=== PATIENT | female | born 1980 | race Caucasian/White ===

== ENCOUNTER → 2019-11-11 | Outpatient (CLI) | payer OTHER ==
--- NOTE | 2019-11-11 15:39 | US ---
EXAMINATION TYPE: US thyroid st tissue head/neck DATE OF EXAM: 11/11/2019 COMPARISON: NONE CLINICAL HISTORY: E04.1 Thyroid nodule. Patient states doctor felt a nodule. Not on thyroid meds. GLAND SIZE: Right Lobe: 5.1 x 1.7 x 1.7 cm Overall Parenchyma: Slightly heterogenous Left Lobe: 5.0 x 1.6 x 1.3 cm Overall Parenchyma: Slightly heterogenous Isthmus Thickness: 0.3 cm NODULES RIGHT: # of nodules measured on right: 1 1. 1.1 X 0.9 x 0.6 cm mixed nodule at the lower pole with well-defined margins; . This nodule is w ider than tall and shows intranodular vascularity. Prior size: No prior 2. 0.4 X 0.2 x 0.3 cm cystic nodule at the upper pole with well-defined margins. This nodule is wid er than tall and shows no intranodular vascularity. Prior size: No prior LEFT: # of nodules measured on left: 3 1. 1.1 X 0.9 x 1.0 cm isoechoic nodule at the lower pole with well-defined margins. This nodule is taller than wide and shows intranodular vascularity. Prior size: No prior 2. 1.0 X 0.9 x 1.0 cm isoechoic nodule at the lower pole with well-defined margins. This nodule is taller than wide and shows intranodular vascularity. Prior size: No prior 3. 0.8 X 0.5 x 0.6 cm mixed nodule at the lower/mid pole with well-defined margins. This nodule is taller than wide and shows no intranodular vascularity. Prior size: No prior ISTHMUS: # of nodules measured in the isthmus: 0 Bilateral neck scanned, no evidence of lymphadenopathy. IMPRESSION: 1. Bilateral thyroid nodules
== END | disposition home or self-care (01) ==
LOC: RADUSWWP 13:22
PROVIDERS: ATTEND Family Medicine
DX: E04.2 Nontoxic multinodular goiter (principal)
CPT/HCPCS: 76536